=== PATIENT | male | born 1945 | race Caucasian/White ===

== ENCOUNTER → 2017-10-12 | Outpatient (CLI) | payer MEDICARE ==
[2017-10-12 14:15] LABS: MICROSCOPIC AUTO
[2017-10-12 14:15] LABS: BASOPHILS # (AUTO) 0.01 x10^3/uL (0-0.1); BASOPHILS % (AUTO) 0 % (0-1); EOSINOPHILS # (AUTO) 0.22 x10^3/uL (0-0.4); EOSINOPHILS % (AUTO) 3 % (1-7); LYMPHOCYTES # (AUTO) 1.81 x10^3/uL (1-3.4); LYMPHOCYTES % (AUTO) 23 % (22-44); MD NO; MEAN CORPUSCULAR HEMOGLOBIN 27.5 pg (27.5-34.5); MEAN CORPUSCULAR HGB CONC 32.5 g/dL (33.2-36.2); MEAN CORPUSCULAR VOLUME 84.6 fL (81-97); MEAN PLATELET VOLUME 9.3 fL (7.4-10.4); MONOCYTES # (AUTO) 0.64 x10^3/uL (0.2-0.8); MONOCYTES % (AUTO) 8 % (2-9); NEUTROPHILS % (AUTO) 66 % (42-75); PLATELET COUNT 202 x10^3/uL (130-400); RED BLOOD COUNT 5.13 x10^6/uL (4.38-5.82); RED CELL DISTRIBUTION WIDTH 14.3 % (9.4-14.8)
[2017-10-12 14:22] LABS: INTERNATIONAL NORMALIZED RATIO 0.99 (0.93-1.1); PROTHROMBIN TIME 10.2 Seconds (9.6-11.5)
[2017-10-12 14:25] LABS: ALBUMIN 3.2 g/dL (3.4-5.0); ANION GAP 8 mmol/L (5-15); CALCIUM 9.6 mg/dL (8.5-10.1); CHLORIDE 107 mmol/L (98-107)
[2017-10-12 14:30] LABS: ALANINE AMINOTRANSFERASE 26 U/L (12-78); ALKALINE PHOSPHATASE 85 U/L (45-117); BILIRUBIN,TOTAL 0.6 mg/dL (0.2-1.0); CREATININE 1.28 mg/dL (0.7-1.3); TOTAL PROTEIN 5.9 g/dL (6.4-8.2)
[2017-10-12 15:48] LABS: HCT (SEDRATE) 43.4 % (39.2-51.8)
== END | disposition home or self-care (01) ==
LOC: STAR 12:50
PROVIDERS: ATTEND Orthopaedic Surgery Orthopaedic Surgery of the Spine
DX: Z01.818 Encounter for other preprocedural examination (principal); I45.10 Unspecified right bundle-branch block; M48.02 Spinal stenosis, cervical region; G95.9 Disease of spinal cord, unspecified
CPT/HCPCS: 36415; 71046; 80053; 81001; 85025; 85610; 85651; 85730; 93005

== ENCOUNTER 2017-10-21 08:28 | Inpatient (IN) | payer MEDICARE ==
[~2017-10-21] VITALS: Ht 182.9 cm; Wt 136.7 kg
[~2017-10-21 08:28] MED LIST: ALLO100T30 PO; AMLO10TA2 PO; ASPI-496 PO; ATOR-2 PO; BACITRACIN 50,000 UNIT ONE; BUPIVACAINE/PF 0.5% ONE; CETI10TA24 PO; CHOL100012 PO; EPINEPHRINE 1 MG/ML, 1ML ONE; ESCI10TA10 PO; FERR-46 PO; FLUT9.9S NAS; FURO-92 PO; HYDR100T25 PO; INSU100I11 SQ; INSU100I13 SQ; ISOS120T2 PO; LEVO50TA5 PO; LISI-167 PO; METO50TA82 PO; MULT1TAB60 PO; POTA20TA14 PO; ROPivacaine/PF 0.2%, 10 ML ONE; TAMS0.4C2 PO; THROMBIN 20,000 UNIT VIAL TP ONE; TRANEXAMIC ACID 100 MG/ML, 10ML ONE
[2017-10-21] MEDS ORDERED: VANCOMYCIN 500 MG ONE (08:51)
[2017-10-21] MEDS ORDERED: FENTANYL PF 250 MCG/5ML ONE (09:27)
[2017-10-21] MEDS ORDERED: LABETALOL 5MG/ML, 20ML IV PRN ×2 (09:30→18:00)
[2017-10-21] MEDS ORDERED: GABAPENTIN 300 MG CAPSULE PO ONE (09:30)
[2017-10-21] MEDS ORDERED: MORPHINE SULFATE 4 MG/ML, 1ML IVPush PRN (09:30)
[2017-10-21] MEDS ORDERED: EPHEDRINE 50 MG/ML, 1ML IVPush PRN (09:30)
[2017-10-21] MEDS ORDERED: DIAZEPAM 5 MG/ML, 2ML IVPush PRN (09:30)
[2017-10-21] MEDS ORDERED: FENTANYL PF 100 MCG/2ML IV PRN (09:30)
[2017-10-21] MEDS ORDERED: ACETAMINOPHEN 500 MG TABLET PO ONE (09:30)
[2017-10-21] MEDS ORDERED: METOPROLOL 1 MG/ML, 5ML IV PRN (09:30)
[2017-10-21] MEDS ORDERED: OXYcodone IR 5MG TABLET PO ONE (09:30)
[2017-10-21] MEDS ORDERED: OXYcodone 5 MG/5 ML ORAL.SOL UDC PO PRN (09:30)
[2017-10-21] MEDS ORDERED: PROMETHAZINE 25 MG/ML, 1ML IV PRN (09:30)
[2017-10-21] MEDS ORDERED: ONDANSETRON ODT 8 MG PO PRN (09:30)
[2017-10-21] MEDS ORDERED: hydrALAzine 20 MG/ML, 1ML IV PRN (09:30)
[2017-10-21] MEDS ORDERED: ALBUTEROL SULFATE 2.5 MG/3 ML NPPB PRN (09:30)
[2017-10-21] MEDS ORDERED: ONDANSETRON ODT 8 MG PO ONE (09:30)
[2017-10-21] MEDS ORDERED: HALOPERIDOL 5 MG/ML IV PRN (09:30)
[2017-10-21 09:39] VITALS: BP 193/73
[2017-10-21] MEDS ORDERED: PROPOFOL 200 ML ONE (11:40)
[2017-10-21] MEDS ORDERED: SUCCINYLCHOLINE 20 MG/ML, 10ML ONE (14:11)
[2017-10-21] MEDS ORDERED: PROPOFOL 10 MG/ML, 20ML ONE (14:11)
[2017-10-21] MEDS ORDERED: ROCURONIUM 10MG/ML,5ML ONE (14:11)
[2017-10-21] MEDS ORDERED: CEFAZOLIN 1,000 MG ONE ×5 (14:12)
[2017-10-21] MEDS ORDERED: ONDANSETRON 2MG/ML, 2ML ONE ×2 (14:17)
[2017-10-21] MEDS ORDERED: BUPIVACAINE/PF 0.25% INFIL ONE (14:28)
[2017-10-21] MEDS ORDERED: EPINEPHRINE 1 MG/ML, 1ML INFIL ONE (14:28)
[2017-10-21] MEDS ORDERED: FENTANYL PF 100 MCG/2ML ONE (15:12)
[2017-10-21 16:55] VITALS: BP 154/71
[2017-10-21] MEDS ORDERED: PROMETHAZINE 25 MG/ML, 1ML IM PRN (18:00)
[2017-10-21] MEDS ORDERED: BISACODYL 10 MG SUPP PR PRN (18:00)
[2017-10-21] MEDS ORDERED: ACETAMINOPHEN 650 MG SUPP PR PRN (18:00)
[2017-10-21] MEDS ORDERED: DIAZEPAM 5 MG TABLET PO PRN (18:00)
[2017-10-21] MEDS ORDERED: KETOROLAC 30 MG/1 ML IV PRN (18:00)
[2017-10-21] MEDS ORDERED: LORazepam 1MG TABLET PO PRN (18:00)
[2017-10-21] MEDS ORDERED: morphine SULFATE 10 MG/ML, 1ML IV PRN (18:00)
[2017-10-21] MEDS ORDERED: MAGNESIUM HYDROXIDE 8%, 30ML UDC PO PRN (18:00)
[2017-10-21] MEDS ORDERED: ONDANSETRON 2MG/ML, 2ML IV PRN (18:00)
[2017-10-21] MEDS ORDERED: ACETAMINOPHEN 500 MG TABLET PO PRN (18:00)
[2017-10-21] MEDS: LABETALOL 5MG/ML, 20ML IV SCH (18:00)
[2017-10-21] MEDS ORDERED: SODIUM CHLORIDE 0.9% 1,000 ML IV PRN (18:30)
[2017-10-21 18:51] VITALS: BP 157/67
[2017-10-21] MEDS: NS + 20MEQ KCL 1,000 ML IV SCH (20:26)
[2017-10-21] MEDS: TAMSULOSIN 0.4 MG CAP.ER.24H PO SCH (20:27)
[2017-10-21] MEDS: METOPROLOL TARTRATE 50 MG TABLET PO SCH (20:27)
[2017-10-21] MEDS: CEFAZOLIN PMX 1GM/50ML 50 ML IVPB SCH (20:27)
[2017-10-21] MEDS: ATORVASTATIN 80 MG TABLET PO SCH (20:27)
[2017-10-21] MEDS ORDERED: ZOLPIDEM 5MG TABLET PO PRN (21:00)
[2017-10-21] MEDS: INSULIN REGULAR 100 UNITS/ML, 3ML VIAL SQ-INSULIN SCH (21:00)
[2017-10-21 23:03] VITALS: BP 180/80
[2017-10-21] MEDS: INSULIN GLARGINE 100 UNITS/ML, PEN SQ-INSULIN SCH (23:06)
[2017-10-21] MEDS: OXYcodone IR 5MG TABLET PO PRN (23:30)
[2017-10-22] MEDS: LABETALOL 5MG/ML, 20ML IV SCH ×3 (01:04→18:00)
[2017-10-22 01:09] VITALS: BP 130/66
[2017-10-22 04:22] VITALS: BP_SYST 156; BP_SYST 65; BP_DIAS 66
[2017-10-22] MEDS: CEFAZOLIN PMX 1GM/50ML 50 ML IVPB SCH (04:31)
[2017-10-22] MEDS: OXYcodone IR 5MG TABLET PO PRN ×3 (05:00→22:20)
[2017-10-22 05:02] LABS: BASOPHILS # (AUTO) 0.03 x10^3/uL (0-0.1); BASOPHILS % (AUTO) 0 % (0-1); EOSINOPHILS # (AUTO) 0.04 x10^3/uL (0-0.4); EOSINOPHILS % (AUTO) 0 % (1-7); LYMPHOCYTES # (AUTO) 1.15 x10^3/uL (1-3.4); LYMPHOCYTES % (AUTO) 12 % (22-44); MD NO; MEAN CORPUSCULAR HEMOGLOBIN 27.9 pg (27.5-34.5); MEAN CORPUSCULAR HGB CONC 32.7 g/dL (33.2-36.2); MEAN CORPUSCULAR VOLUME 85.2 fL (81-97); MEAN PLATELET VOLUME 9.9 fL (7.4-10.4); MONOCYTES # (AUTO) 0.73 x10^3/uL (0.2-0.8); MONOCYTES % (AUTO) 7 % (2-9); NEUTROPHILS # (AUTO) 7.96 x10^3/uL (1.8-6.8); NEUTROPHILS % (AUTO) 80 % (42-75); PLATELET COUNT 169 x10^3/uL (130-400); RED BLOOD COUNT 5.15 x10^6/uL (4.38-5.82)
[2017-10-22 05:46] VITALS: BP 160/68
[2017-10-22] MEDS: NS + 20MEQ KCL 1,000 ML IV SCH ×2 (05:55→22:00)
[2017-10-22] MEDS: METOPROLOL TARTRATE 50 MG TABLET PO SCH ×2 (05:58→21:21)
[2017-10-22] MEDS: LEVOTHYROXINE 50 MCG TABLET PO SCH (05:59)
[2017-10-22] MEDS: ASPIRIN 81 MG TABLET EC PO SCH (05:59)
[2017-10-22] MEDS: INSULIN REGULAR 100 UNITS/ML, 3ML VIAL SQ-INSULIN SCH ×4 (07:00→21:35)
[2017-10-22] MEDS ORDERED: INSULIN LISPRO 100 UNITS/ML, PEN SQ-INSULIN SCH (07:00)
[2017-10-22 08:00] VITALS: BP 170/80
[2017-10-22] MEDS: FLUTICASONE NASAL SPRAY 16GM NAS SCH (09:00)
[2017-10-22] MEDS: FUROSEMIDE 40 MG TABLET PO SCH (09:56)
[2017-10-22] MEDS: MULTIVITAMIN 1 TABLET PO SCH (09:56)
[2017-10-22] MEDS: ALLOPURINOL 100 MG TABLET PO SCH (09:56)
[2017-10-22] MEDS: POTASSIUM CHLORIDE 20 MEQ TAB.ER.PRT PO SCH (09:56)
[2017-10-22] MEDS: CHOLECALCIFEROL 1,000 UNIT TABLET PO SCH (09:57)
[2017-10-22] MEDS: LISINOPRIL 10 MG TABLET PO SCH (09:57)
[2017-10-22] MEDS: SENNA/DOCUSATE TABLET PO SCH (09:57)
[2017-10-22] MEDS: CITALOPRAM 10 MG TABLET PO SCH (09:57)
[2017-10-22] MEDS: FERROUS SULFATE 325 MG TABLET PO SCH (09:57)
[2017-10-22] MEDS: AMLODIPINE 5 MG TABLET PO SCH (09:57)
[2017-10-22] MEDS: ISOSORBIDE MONONITRATE ER 60 MG TABLET PO SCH (09:57)
[2017-10-22] MEDS: INSULIN GLARGINE 100 UNITS/ML, PEN SQ-INSULIN SCH ×2 (09:58→21:35)
[2017-10-22] MEDS: CETIRIZINE 10 MG TABLET PO SCH (09:58)
[2017-10-22] MEDS: DEXAMETHASONE 4 MG/ML, 1ML IV PRN (12:55)
[2017-10-22 13:28] VITALS: BP 128/64
[2017-10-22 18:58] VITALS: BP 164/68
[2017-10-22] MEDS: TAMSULOSIN 0.4 MG CAP.ER.24H PO SCH (21:20)
[2017-10-22] MEDS: ATORVASTATIN 80 MG TABLET PO SCH (21:21)
[2017-10-23 01:23] VITALS: BP 124/69
[2017-10-23] MEDS: LABETALOL 5MG/ML, 20ML IV SCH ×3 (02:00→16:20)
[2017-10-23 05:30] LABS: BASOPHILS # (AUTO) 0.02 x10^3/uL (0-0.1); BASOPHILS % (AUTO) 0 % (0-1); EOSINOPHILS # (AUTO) 0.02 x10^3/uL (0-0.4); EOSINOPHILS % (AUTO) 0 % (1-7); LYMPHOCYTES # (AUTO) 1.08 x10^3/uL (1-3.4); LYMPHOCYTES % (AUTO) 9 % (22-44); MD NO; MEAN CORPUSCULAR HEMOGLOBIN 28.1 pg (27.5-34.5); MEAN CORPUSCULAR HGB CONC 33.2 g/dL (33.2-36.2); MEAN CORPUSCULAR VOLUME 84.4 fL (81-97); MEAN PLATELET VOLUME 9.7 fL (7.4-10.4); MONOCYTES # (AUTO) 0.95 x10^3/uL (0.2-0.8); MONOCYTES % (AUTO) 8 % (2-9); NEUTROPHILS # (AUTO) 9.48 x10^3/uL (1.8-6.8); NEUTROPHILS % (AUTO) 82 % (42-75); PLATELET COUNT 171 x10^3/uL (130-400); RED BLOOD COUNT 4.56 x10^6/uL (4.38-5.82); RED CELL DISTRIBUTION WIDTH 13.7 % (9.4-14.8)
[2017-10-23 06:35] VITALS: BP 145/72
[2017-10-23] MEDS: ASPIRIN 81 MG TABLET EC PO SCH (06:39)
[2017-10-23] MEDS: LEVOTHYROXINE 50 MCG TABLET PO SCH (06:40)
[2017-10-23] MEDS: METOPROLOL TARTRATE 50 MG TABLET PO SCH ×2 (06:40→18:12)
[2017-10-23] MEDS: OXYcodone IR 5MG TABLET PO PRN ×4 (06:40→16:15)
[2017-10-23] MEDS: INSULIN REGULAR 100 UNITS/ML, 3ML VIAL SQ-INSULIN SCH ×4 (07:00→21:33)
[2017-10-23] MEDS: NS + 20MEQ KCL 1,000 ML IV SCH ×3 (08:00→19:25)
[2017-10-23] MEDS: FLUTICASONE NASAL SPRAY 16GM NAS SCH (09:00)
[2017-10-23] MEDS: CETIRIZINE 10 MG TABLET PO SCH (09:00)
[2017-10-23 09:32] VITALS: BP 121/72
[2017-10-23] MEDS: CITALOPRAM 10 MG TABLET PO SCH (09:34)
[2017-10-23] MEDS: SENNA/DOCUSATE TABLET PO SCH (09:36)
[2017-10-23] MEDS: AMLODIPINE 5 MG TABLET PO SCH (09:37)
[2017-10-23] MEDS: LISINOPRIL 10 MG TABLET PO SCH (09:37)
[2017-10-23] MEDS: MULTIVITAMIN 1 TABLET PO SCH (09:38)
[2017-10-23] MEDS: FERROUS SULFATE 325 MG TABLET PO SCH (09:38)
[2017-10-23] MEDS: CHOLECALCIFEROL 1,000 UNIT TABLET PO SCH (09:38)
[2017-10-23] MEDS: FUROSEMIDE 40 MG TABLET PO SCH (09:39)
[2017-10-23] MEDS: ISOSORBIDE MONONITRATE ER 60 MG TABLET PO SCH (09:39)
[2017-10-23] MEDS: POTASSIUM CHLORIDE 20 MEQ TAB.ER.PRT PO SCH (09:40)
[2017-10-23] MEDS: ALLOPURINOL 100 MG TABLET PO SCH (09:40)
[2017-10-23] MEDS: INSULIN GLARGINE 100 UNITS/ML, PEN SQ-INSULIN SCH ×2 (09:50→21:33)
[2017-10-23 15:07] VITALS: BP 129/63
[2017-10-23 18:11] VITALS: BP 138/62
[2017-10-23] MEDS: TAMSULOSIN 0.4 MG CAP.ER.24H PO SCH (21:23)
[2017-10-23] MEDS: ATORVASTATIN 80 MG TABLET PO SCH (21:23)
[2017-10-24 02:22] VITALS: BP 155/60
[2017-10-24] MEDS: LABETALOL 5MG/ML, 20ML IV SCH ×3 (02:58→17:03)
[2017-10-24] MEDS: OXYcodone IR 5MG TABLET PO PRN ×4 (03:06→21:15)
[2017-10-24 04:46] LABS: BASOPHILS # (AUTO) 0.01 x10^3/uL (0-0.1); BASOPHILS % (AUTO) 0 % (0-1); EOSINOPHILS # (AUTO) 0.12 x10^3/uL (0-0.4); EOSINOPHILS % (AUTO) 1 % (1-7); LYMPHOCYTES # (AUTO) 1.34 x10^3/uL (1-3.4); LYMPHOCYTES % (AUTO) 15 % (22-44); MD NO; MEAN CORPUSCULAR HEMOGLOBIN 27.9 pg (27.5-34.5); MEAN CORPUSCULAR HGB CONC 32.9 g/dL (33.2-36.2); MEAN CORPUSCULAR VOLUME 84.9 fL (81-97); MEAN PLATELET VOLUME 10.1 fL (7.4-10.4); MONOCYTES # (AUTO) 0.83 x10^3/uL (0.2-0.8); MONOCYTES % (AUTO) 9 % (2-9); NEUTROPHILS # (AUTO) 6.72 x10^3/uL (1.8-6.8); NEUTROPHILS % (AUTO) 75 % (42-75); PLATELET COUNT 170 x10^3/uL (130-400); RED BLOOD COUNT 4.35 x10^6/uL (4.38-5.82); RED CELL DISTRIBUTION WIDTH 14.2 % (9.4-14.8)
[2017-10-24] MEDS: METOPROLOL TARTRATE 50 MG TABLET PO SCH ×2 (06:05→17:02)
[2017-10-24] MEDS: LEVOTHYROXINE 50 MCG TABLET PO SCH (06:06)
[2017-10-24] MEDS: ASPIRIN 81 MG TABLET EC PO SCH (06:06)
[2017-10-24] MEDS: INSULIN REGULAR 100 UNITS/ML, 3ML VIAL SQ-INSULIN SCH ×4 (06:10→21:05)
[2017-10-24 06:40] VITALS: BP 144/69
[2017-10-24] MEDS: FLUTICASONE NASAL SPRAY 16GM NAS SCH (09:00)
[2017-10-24] MEDS: CHOLECALCIFEROL 1,000 UNIT TABLET PO SCH (09:27)
[2017-10-24] MEDS: ISOSORBIDE MONONITRATE ER 60 MG TABLET PO SCH (09:27)
[2017-10-24] MEDS: SENNA/DOCUSATE TABLET PO SCH (09:27)
[2017-10-24] MEDS: CITALOPRAM 10 MG TABLET PO SCH (09:27)
[2017-10-24] MEDS: MULTIVITAMIN 1 TABLET PO SCH (09:27)
[2017-10-24] MEDS: POTASSIUM CHLORIDE 20 MEQ TAB.ER.PRT PO SCH (09:28)
[2017-10-24] MEDS: AMLODIPINE 5 MG TABLET PO SCH (09:28)
[2017-10-24] MEDS: LISINOPRIL 10 MG TABLET PO SCH (09:28)
[2017-10-24] MEDS: FERROUS SULFATE 325 MG TABLET PO SCH (09:28)
[2017-10-24] MEDS: ALLOPURINOL 100 MG TABLET PO SCH (09:28)
[2017-10-24] MEDS: CETIRIZINE 10 MG TABLET PO SCH (09:28)
[2017-10-24] MEDS: FUROSEMIDE 40 MG TABLET PO SCH (09:28)
[2017-10-24] MEDS: INSULIN GLARGINE 100 UNITS/ML, PEN SQ-INSULIN SCH ×2 (09:29→21:05)
[2017-10-24] MEDS: DEXAMETHASONE 4 MG/ML, 1ML IV PRN (11:22)
[2017-10-24 14:34] VITALS: BP 139/68
[2017-10-24] MEDS: NS + 20MEQ KCL 1,000 ML IV SCH ×2 (15:44→19:00)
[2017-10-24 17:01] VITALS: BP 133/73
[2017-10-24 19:28] VITALS: BP 144/70
[2017-10-24] MEDS: ATORVASTATIN 80 MG TABLET PO SCH (20:55)
[2017-10-24] MEDS: TAMSULOSIN 0.4 MG CAP.ER.24H PO SCH (20:55)
[2017-10-25] MEDS: LABETALOL 5MG/ML, 20ML IV SCH ×3 (02:00→07:26)
[2017-10-25 02:03] VITALS: BP 133/72
[2017-10-25 05:59] LABS: LYMPHOCYTES % (AUTO) 11 % (22-44); MEAN CORPUSCULAR HEMOGLOBIN 27.7 pg (27.5-34.5); MEAN CORPUSCULAR HGB CONC 32.4 g/dL (33.2-36.2); MEAN CORPUSCULAR VOLUME 85.5 fL (81-97); MONOCYTES % (AUTO) 8 % (2-9); NEUTROPHILS % (AUTO) 81 % (42-75); PLATELET COUNT 206 x10^3/uL (130-400); RED BLOOD COUNT 4.62 x10^6/uL (4.38-5.82)
[2017-10-25 06:00] LABS: BASOPHILS # (AUTO) 0.02 x10^3/uL (0-0.1); BASOPHILS % (AUTO) 0 % (0-1); EOSINOPHILS # (AUTO) 0.05 x10^3/uL (0-0.4); EOSINOPHILS % (AUTO) 0 % (1-7); LYMPHOCYTES # (AUTO) 1.16 x10^3/uL (1-3.4); MD NO; MONOCYTES # (AUTO) 0.87 x10^3/uL (0.2-0.8); NEUTROPHILS # (AUTO) 8.72 x10^3/uL (1.8-6.8)
[2017-10-25] MEDS: ASPIRIN 81 MG TABLET EC PO SCH (06:05)
[2017-10-25] MEDS: LEVOTHYROXINE 50 MCG TABLET PO SCH (06:05)
[2017-10-25] MEDS: METOPROLOL TARTRATE 50 MG TABLET PO SCH (06:05)
[2017-10-25] MEDS: OXYcodone IR 5MG TABLET PO PRN (06:05)
[2017-10-25] MEDS: INSULIN REGULAR 100 UNITS/ML, 3ML VIAL SQ-INSULIN SCH ×2 (06:10→10:59)
[2017-10-25 06:55] VITALS: BP 129/66
[2017-10-25] MEDS: MULTIVITAMIN 1 TABLET PO SCH (08:04)
[2017-10-25] MEDS: ALLOPURINOL 100 MG TABLET PO SCH (08:04)
[2017-10-25] MEDS: CHOLECALCIFEROL 1,000 UNIT TABLET PO SCH (08:04)
[2017-10-25] MEDS: CETIRIZINE 10 MG TABLET PO SCH (08:04)
[2017-10-25] MEDS: LISINOPRIL 10 MG TABLET PO SCH (08:04)
[2017-10-25] MEDS: FUROSEMIDE 40 MG TABLET PO SCH (08:04)
[2017-10-25] MEDS: AMLODIPINE 5 MG TABLET PO SCH (08:04)
[2017-10-25] MEDS: FLUTICASONE NASAL SPRAY 16GM NAS SCH (08:04)
[2017-10-25] MEDS: FERROUS SULFATE 325 MG TABLET PO SCH (08:05)
[2017-10-25] MEDS: POTASSIUM CHLORIDE 20 MEQ TAB.ER.PRT PO SCH (08:05)
[2017-10-25] MEDS: ISOSORBIDE MONONITRATE ER 60 MG TABLET PO SCH (08:05)
[2017-10-25] MEDS: CITALOPRAM 10 MG TABLET PO SCH (08:05)
[2017-10-25] MEDS: SENNA/DOCUSATE TABLET PO SCH (08:05)
[2017-10-25] MEDS: NS + 20MEQ KCL 1,000 ML IV SCH (09:39)
[2017-10-25] MEDS: INSULIN GLARGINE 100 UNITS/ML, PEN SQ-INSULIN SCH (09:45)
[2017-10-25 13:05] VITALS: BP 149/64
[2017-10-25] MEDS ORDERED: CEPH-368 PO (13:55)
[2017-10-25] MEDS ORDERED: METH750T87 PO (13:55)
[2017-10-25] MEDS ORDERED: OXYC5CAP2 PO (13:55)
== END 2017-10-25 14:03 | disposition home or self-care (01) | DRG 471 ==
LOC: ORIP 08:28 → 4NOR 16:51 → DCLOUNGE 10-25 13:49
PROVIDERS: ADMIT Orthopaedic Surgery Orthopaedic Surgery of the Spine; ATTEND Orthopaedic Surgery Orthopaedic Surgery of the Spine
PROC: 0RG20A0 Fusion of 2 or more Cervical Vertebral Joints with Interbody Fusion Device, Anterior Approach, Anterior Column, Open Approach (ICD-10-PCS; 2017-10-21)
PROC: 0RT30ZZ Resection of Cervical Vertebral Disc, Open Approach (ICD-10-PCS; 2017-10-21)
PROC: 0RT50ZZ Resection of Cervicothoracic Vertebral Disc, Open Approach (ICD-10-PCS; 2017-10-21)
PROC: 4A11X4G Monitoring of Peripheral Nervous Electrical Activity, Intraoperative, External Approach (ICD-10-PCS; 2017-10-21)
PROC: 0RG40A0 Fusion of Cervicothoracic Vertebral Joint with Interbody Fusion Device, Anterior Approach, Anterior Column, Open Approach (ICD-10-PCS; principal; 2017-10-21 11:00)
PROC: 5A09457 Assistance with Respiratory Ventilation, 24-96 Consecutive Hours, Continuous Positive Airway Pressure (ICD-10-PCS; 2017-10-22)
DX: M48.02 Spinal stenosis, cervical region (principal); E43 Unspecified severe protein-calorie malnutrition; M50.03 Cervical disc disorder with myelopathy, cervicothoracic region; G95.9 Disease of spinal cord, unspecified; Z68.41 Body mass index [BMI] 40.0-44.9, adult; M54.14 Radiculopathy, thoracic region
CPT/HCPCS: 36415; 71045; 72040; 82962; 85025; 86850; 86900; 94660; C1713; J0171; J0690; J1100; J1815; J2405; J2704; J2795; J3010; J3360; J3370; J3480; J3490; Q0162; C1762; J0330